=== PATIENT | female | born 1950 | race American Indian/Alaskan Native ===

== ENCOUNTER → 2016-11-19 | Outpatient (CLI) | payer OTHER | END | disposition home or self-care (01) | LOC: CFH 11:43 | PROVIDERS: ATTEND Internal Medicine | DX: R92.8 Other abnormal and inconclusive findings on diagnostic imaging of breast (principal) | CPT/HCPCS: G0206 ==

== ENCOUNTER → 2016-12-04 | Outpatient (CLI) | payer OTHER ==
[~2016-12-04] MED LIST: LIDOCAINE 1%, 20ML ONE; LIDOCAINE 1%-EPI 1:100K, 20ML ONE; SODIUM BICARBONATE 4.2%, 5ML ONE
== END | disposition home or self-care (01) ==
LOC: CFH 09:19
PROVIDERS: ATTEND Internal Medicine
DX: R92.0 Mammographic microcalcification found on diagnostic imaging of breast (principal)
CPT/HCPCS: 19081; 88305; G0206; J3490